=== PATIENT | female | born 1955 | race Native Hawaiian/Other Pacific Islander ===

== ENCOUNTER 2016-10-07 19:43 | Emergency (ER) | payer SELFPAY ==
[~2016-10-07] VITALS: Ht 162.6 cm; Wt 90.2 kg
[~2016-10-07 19:43] MED LIST: AMOX500T PO; ATOR20TA15 PO; CYCL1TAB29 PO; GABA100C4 PO; LISI10TA3 PO; METF500T PO; METO25TA3 PO; NAPR500 PO; PLAV75TA29 PO
[2016-10-07 19:51] VITALS: BP 213/101; PULSE 73; RESP 22; TEMP 98.2; O2SAT 99
[2016-10-07] MEDS ORDERED: PENICILLIN V POTASSIUM 500 MG TAB PO ONE (20:15)
[2016-10-07] MEDS ORDERED: oxyCODONE/ACETAMINOPHEN 5 MG/325 MG TAB PO ONE (20:15)
[2016-10-07] MEDS ORDERED: PENI500T PO (20:20)
[2016-10-07] MEDS ORDERED: PERC5TAB12 PO (20:20)
--- NOTE | 2016-10-07 20:20 | PD ---
HPI Chief Complaint: Oral / Dental Pain or Problem Time Seen by Provider: 19:57 Travel History International Travel<30 days: No Contact w/Intl Traveler<30days: No Traveled to known affect area: No History of Present Illness HPI This 61-year-old female is complaining of pain in her mouth and swelling of her face. She has had very bad teeth for some time. She does have high blood pressure, diabetes and history of stroke. She is on Plavix. The upper gum has been very painful and has become more swollen. PFSH Past Medical History Hx Anticoagulant Therapy: Yes ADD: No Arthritis: Yes Cardiovascular Problems: Yes (HTN, CHOL) High Cholesterol: Yes Chemotherapy: No Cerebrovascular Accident: Yes Diabetes: Yes Patient Takes Glucophage: Yes Diminished Hearing: Yes ([place] LEFT EAR) Hypertension: Yes Musculoskeletal: Yes Respiratory: No Integumentary: Yes Immunizations Current: No Tetanus Vaccination: Unknown Influenza Vaccination: No ?: Not Menopausal: Yes : 1 Para: 1 Past Surgical History Hysterectomy: No Neurologic Surgery: Yes (C1-C2 FUSION) Tympanostomy Tube: No Social History Alcohol Use: Yes (wine, socially) Tobacco Use: No (as teenager, A FEW TIMES) Substance Use: No Allergies-Medications (Allergen,Severity, Reaction): Coded Allergies: Tetanus Immune Globulin (Verified Allergy, Unknown, 10/07/16) Uncoded Allergies: METAL (Allergy, Severe, Itching, 09/02/14) .ITCHING AND BURNING Reported Meds & Prescriptions Reported Meds & Active Scripts Active Percocet (Oxycodone-Acetaminophen) 5-325 mg Tab 1-2 Tab PO Q6H PRN Penicillin V Potassium 500 Mg Tab 500 Mg PO Q6H Reported Atorvastatin (Atorvastatin Calcium) 20 Mg Tab 20 Mg PO HS Metoprolol Tartrate 25 Mg Tab 12.5 Mg PO BID Plavix (Clopidogrel Bisulfate) 75 Mg Tab 75 Mg PO DAILY Metformin (Metformin HCl) 500 Mg Tab 1,000 Mg PO BIDPC With meals Gabapentin 100 Mg Cap 100 Mg PO BID Lisinopril 10 Mg Tab 20 Mg PO DAILY Review of Systems General / Constitutional: No: Fever, Chills Eyes: No: Diploplia HENT: Positive: Headaches, Dental Difficulties Cardiovascular: No: Chest Pain or Discomfort, Palpitations Respiratory: No: Cough, Shortness of Breath Gastrointestinal: No: Vomiting Musculoskeletal: Positive: Pain Skin: No Rash Neurologic: No: Syncope Endocrine: No: Heat Intolerance, Cold Intolerance Physical Exam Narrative GENERAL: Well-developed female. Blood pressure is initially quite elevated. She says her blood pressure does get elevated when she has pain SKIN: Focused skin assessment warm/dry. HEAD: Atraumatic. Normocephalic. EYES: Pupils equal and round. No scleral icterus. No injection or drainage. ENT: No nasal bleeding or discharge. Mucous membranes pink and moist. Her front maxillary teeth are in very bad condition with multiple caries. The underlying gum is swollen and tender. NECK: Trachea midline. No JVD. CARDIOVASCULAR: Regular rate and rhythm. No murmur appreciated. RESPIRATORY: No accessory muscle use. Clear to auscultation. Breath sounds equal bilaterally. GASTROINTESTINAL: Abdomen soft, non-tender, nondistended. Hepatic and splenic margins not palpable. MUSCULOSKELETAL: No obvious deformities. No clubbing. No cyanosis. No edema. NEUROLOGICAL: Awake and alert. No obvious cranial nerve deficits. Motor grossly within normal limits. Normal speech. PSYCHIATRIC: Appropriate mood and affect; insight and judgment normal. Data Data Last Documented VS Vital Signs Date Time Temp Pulse Resp B/P Pulse Ox O2 Delivery O2 Flow Rate FiO2 10/07/16 20:09 18 10/07/16 19:51 98.2 73 213/101 99 Orders Oxycodone-Acetamin 5-325 Mg (Percocet (10/07/16 20:15) Penicillin V Potassium (Veetids) (10/07/16 20:15) Clonidine (Catapres) (10/07/16 21:00) [facility] Medical Decision Making Medical Screen Exam Complete: Yes Emergency Medical Condition: Yes Medical Record Reviewed: Yes Differential Diagnosis Differential includes dental abscess, hypertension Narrative Course Patient started on penicillin and given pain medication. The importance of seeing a dentist has been stressed to her. She initially had eye blood pressure this has improved considerably with control of her pain. Diagnosis Primary Impression: Dental abscess Departure Forms: Tests/Procedures, Work Release Enter return to work date: Oct 11, 2016 Scripts Oxycodone-Acetaminophen (Percocet)5-325 mg Tab1-2 Tab PO Q6H PRN (PAIN) #30 TAB Ref 0 Prov:Albaro Mello MD 10/07/16 Penicillin V Potassium 500 Mg [id number] Mg PO Q6H #40 TAB Ref 0 Prov:Albaro Mello MD 10/07/16 Disposition: 01 DISCHARGE HOME Condition: Stable Albaro Mello MD Oct 07, 2016 20:20
[2016-10-07 20:30] VITALS: BP 210/97; PULSE 70; RESP 18; O2SAT 98
[2016-10-07 21:00] VITALS: BP 185/84; PULSE 64; RESP 16; O2SAT 98
[2016-10-07] MEDS ORDERED: cloNIDine HCL 0.1 MG TAB PO ONE (21:00)
[2016-10-07 21:30] VITALS: BP 159/70; PULSE 66; RESP 16; O2SAT 97
[2016-10-07 21:45] VITALS: RESP 16
== END 2016-10-07 21:53 | disposition home or self-care (01) ==
LOC: PHED 19:43
DX: K04.7 Periapical abscess without sinus (principal); I10 Essential (primary) hypertension; E11.9 Type 2 diabetes mellitus without complications; E78.00 Pure hypercholesterolemia, unspecified; H91.92 Unspecified hearing loss, left ear; Z79.84 Long term (current) use of oral hypoglycemic drugs; Z79.01 Long term (current) use of anticoagulants; Z86.79 Personal history of other diseases of the circulatory system; Z87.39 Personal history of other diseases of the musculoskeletal system and connective tissue
CPT/HCPCS: 99284